=== PATIENT | female | born 1955 | race Caucasian/White ===

== ENCOUNTER 2016-09-29 07:41 | Emergency (ER) | payer MEDICAID, SELFPAY ==
[2016-09-29 07:46] VITALS: BP 163/76; PULSE 89; RESP 20; TEMP 98; O2SAT 100; BMI 30.2
--- NOTE | 2016-09-29 07:59 | ED PDOC ---
HPI: General Adult Time Seen by Provider: 09/29/16 07:49 Chief Complaint (Provider): right shoulder pain History Per: Patient History/Exam Limitations: no limitations Additional Complaint(s): 61yo female comes to the ED for 5 days of right shoulder pain radiating to the elbow. No trauma or injury however 4 days ago she lifted a piece of luggage while at work, which made pain worse. 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 She was given tramadol and flexeril by her PMD which did not help. Describes pain as "stabbing". No numbness, tingling, weakness. No chest pain, headache, shortness of breath, nausea, vomit. Patient not able to take any NSAIDs. Past Medical History Reviewed: Historical Data, Nursing Documentation, Vital Signs Vital Signs: Last Vital Signs Temp 98.0 F 09/29/16 07:44 Pulse 89 09/29/16 07:44 Resp 20 09/29/16 07:44 BP 163/76 H 09/29/16 07:44 Pulse Ox 100 09/29/16 10:44 - Medical History PMH: Hypercholesterolemia (not prescribed medication) Denies: Diabetes, HTN - Family History Family History: States: Unknown Family Hx - Social History Current smoker - smoking cessation education provided: No Alcohol: None Drugs: Denies - Home Medications Home Medications: Ambulatory Orders Medication Instructions Recorded Acetaminophen [Tylenol 325mg tab] 325 mg PO TID PRN 10 Days 09/29/16 - Allergies Allergies/Adverse Reactions: Allergies Allergy/AdvReac Type Severity Reaction Status Date / Time aspirin Allergy NAUSEA Verified 09/29/16 08:04 Review of Systems ROS Statement: Except As Marked, All Systems Reviewed And Found Negative Gastrointestinal: Negative for: Nausea, Vomiting, Diarrhea Musculoskeletal: Positive for: Shoulder Pain, Arm Pain Physical Exam - Reviewed Nursing Documentation Reviewed: Yes Vital Signs Reviewed: Yes - Physical Exam Appears: Positive for: Well, Non-toxic, No Acute Distress Head Exam: Positive for: ATRAUMATIC, NORMAL INSPECTION, NORMOCEPHALIC Skin: Positive for: Warm, Dry Eye Exam: Positive for: EOMI, PERRL Neck: Positive for: Normal, Painless ROM, Supple Cardiovascular/Chest: Positive for: Regular Rate, Rhythm Respiratory: Positive for: Normal Breath Sounds. Negative for: Rales, Rhonchi, Wheezing Pulses-Radial (L): 2+ Pulses-Radial (R): 2+ Back: Positive for: Normal Inspection. Negative for: L CVA Tenderness, R CVA Tenderness Extremity: Positive for: Tenderness (right shoulder tender anteriorly), Other ( Good pulses radially. good strength 5/5. No trouble with elbow. ). Negative for : Normal ROM (+limited right shoulder ROM due to pain. ) Neurologic/Psych: Positive for: Alert, Oriented - ECG O2 Sat by Pulse Oximetry: 100 (RA) Pulse Ox Interpretation: Normal - Radiology X-Ray: Interpreted by Me, Viewed By Me X-Ray Interpretation: No Acute Disease - Progress ED Course And Treament: 0749 XR Right shoulder, tylenol/codeine, valium ordered. 1047: Stable. AAOx3. Pain controlled. Fu with pcp. Disposition - Clinical Impression Clinical Impression: Shoulder pain - Patient ED Disposition Is Patient to be Admitted: No - Disposition Referrals: [facility] [Outside] - 09/30/16 Disposition: Routine/Home Disposition Time: 10:47 Condition: STABLE Additional Instructions: Return in 3 days if not better. Prescriptions: Acetaminophen [Tylenol 325mg tab] 325 mg PO TID PRN 10 Days PRN Reason: Pain, Moderate (4-7) Instructions: Shoulder Pain (ED) Print Language: SWEDISH Additional Comments - Additional Comments Additional Comments: Scribe Attestation: Documented by Fredo Barney acting as a scribe for Alexander Tapia MD. Provider Scribe Attestation: All medical record entries made by the Scribe were at my direction and personally dictated by me. I have reviewed the chart and agree that the record accurately reflects my personal performance of the history, physical exam, medical decision making, and the department course for this patient. I have also personally directed, reviewed, and agree with the discharge instructions and disposition.
[2016-09-29] MEDS ORDERED: Acetaminophen-Codeine 300/30 mg Tab PO STA (08:06)
--- NOTE | 2016-09-29 11:31 | RAD ---
PROCEDURE: Radiographs of the Right Shoulder HISTORY: shoulder pain COMPARISON: No prior. FINDINGS: BONES: No fracture. JOINTS: Glenohumeral articulation appears unremarkable. 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 There is a large somewhat a amorphous calcification adjacent to the greater tuberosity consistent with calcific tendinitis. SOFT TISSUES: Normal. OTHER FINDINGS: None. IMPRESSION: Calcific tendinitis. Acromioclavicular degenerative arthritis.
== END 2016-09-29 11:15 | disposition home or self-care (01) ==
LOC: H.ER 07:41
DX: M25.511 Pain in right shoulder (principal); E78.00 Pure hypercholesterolemia, unspecified

== ENCOUNTER 2017-09-14 12:42 | Emergency (ER) | payer MEDICAID ==
[2017-09-14 12:44] VITALS: BMI 30.2
[2017-09-14 12:53] VITALS: BP 136/75; PULSE 83; RESP 16; TEMP 98.7; O2SAT 99
--- NOTE | 2017-09-14 13:59 | ED PDOC ---
HPI: Eye Injury/Pain Time Seen by Provider: 09/14/17 13:33 Chief Complaint (Nursing): Eye Problem Chief Complaint (Provider): Eye Pain History Per: Patient History/Exam Limitations: no limitations Onset/Duration Of Symptoms: Days (x 1) Current Symptoms Are (Timing): Still Present Additional Complaint(s): Milady is a 62 y/o female who presents to the ED complaining of eye irritation and pain. Patient states that she has been sick with cough, sneezing, and congestion for the past few days, and now her right eye is red and feels irritated. She initially went to her PMD today who could not see her, but the staff referred to the ER. PMD: Shruthi Vann Past Medical History Reviewed: Historical Data, Nursing Documentation, Vital Signs Vital Signs: Last Vital Signs Temp 98.7 F 09/14/17 12:49 Pulse 83 09/14/17 12:49 Resp 16 09/14/17 12:49 BP 136/75 09/14/17 12:49 Pulse Ox 99 09/14/17 12:49 - Medical History PMH: Hypercholesterolemia (not prescribed medication) Denies: Diabetes, HTN - Family History Family History: States: Unknown Family Hx - Home Medications Home Medications: Ambulatory Orders Medication Instructions Recorded Acetaminophen [Tylenol 325mg tab] 325 mg PO TID PRN 10 Days tab 09/29/16 D-Methorphan/PE/Acetaminophen 5 ml PO QID #1 bot 09/14/17 [Tylenol Cold M-S Daytime Liq] Ofloxacin Ophth 0.3% [Ocuflox 4 drop OD QID 5 Days #5 ml 09/14/17 Ophth 0.3%] - Allergies Allergies/Adverse Reactions: Allergies Allergy/AdvReac Type Severity Reaction Status Date / Time aspirin Allergy NAUSEA Verified 09/14/17 12:49 Review of Systems ROS Statement: Except As Marked, All Systems Reviewed And Found Negative Eyes: Positive for: Pain, Redness ENT: Positive for: Nose Congestion Respiratory: Positive for: Cough Physical Exam - Reviewed Nursing Documentation Reviewed: Yes Vital Signs Reviewed: Yes - Physical Exam Appears: Positive for: Well, Non-toxic, No Acute Distress Skin: Positive for: Normal Color, Warm, Dry Eye Exam: Positive for: Conjunctival injection (right) ENT: Positive for: Other ((-) uvular edema, (+) mucous membranes moist). Negative for: Pharyngeal Erythema, Tonsillar Exudate Cardiovascular/Chest: Positive for: Regular Rate, Rhythm Respiratory: Positive for: Wheezing (diffuse b/l) Neurologic/Psych: Positive for: Alert, Oriented - ECG O2 Sat by Pulse Oximetry: 99 (RA) Pulse Ox Interpretation: Normal Medical Decision Making Medical Decision Making: Time: 13:50 Initial Impression: Viral Conjunctivitis in Right Eye Secondary to Cold Initial Plan: Scribe Attestation: Documented by Octaviano Cook acting as a scribe for Nando Gallegos PA-C MD Scribe Attestation: All medical record entries made by the Scribe were at my direction and personally dictated by me. I have reviewed the chart and agree that the record accurately reflects my personal performance of the history, physical exam, medical decision making, and the department course for this patient. I have also personally directed, reviewed, and agree with the discharge instructions and disposition. Disposition - Clinical Impression Clinical Impression: Conjunctivitis due to adenovirus, right eye, Conjunctivitis - Patient ED Disposition Is Patient to be Admitted: No Counseled Patient/Family Regarding: Diagnosis, Need For Followup, Rx Given - Disposition Referrals: [facility] [Outside] Disposition Time: 14:03 Condition: GOOD Prescriptions: D-Methorphan/PE/Acetaminophen [Tylenol Cold M-S Daytime Liq] 5 ml PO QID #1 bot Ofloxacin Ophth 0.3% [Ocuflox Ophth 0.3%] 4 drop OD QID 5 Days #5 ml Instructions: Conjunctivitis (Pinkeye), Conjunctivitis (Pinkeye) (DC) Forms: [employer] (Somali) Print Language: SLOVENIAN
== END 2017-09-14 14:33 | disposition home or self-care (01) ==
LOC: H.ER 12:42
DX: B30.1 Conjunctivitis due to adenovirus (principal); E78.00 Pure hypercholesterolemia, unspecified